=== PATIENT | female | born 1950 | race Caucasian/White ===

== ENCOUNTER 2019-08-11 17:48 | Emergency (ER) | payer OTHER ==
[~2019-08-11] VITALS: Ht 167.6 cm; Wt 64.4 kg
[~2019-08-11 17:48] MED LIST: EVISTA60 MG PO; IBUPROFEN 800800 M1 PO; UNICOMPLEX M TA1 TA1 PO
[2019-08-11] MEDS ORDERED: ASA81BEC PO (17:57)
[2019-08-11] MEDS ORDERED: TYLENOL WITH CO1 TA1 PO (18:42)
[2019-08-11] MEDS ORDERED: KEFLEX500 M1 PO (18:42)
[2019-08-11 19:24] VITALS: BP 148/84
== END 2019-08-11 19:24 | disposition home or self-care (01) ==
LOC: M.ERS 17:48
DX: S61.217A Laceration without foreign body of left little finger without damage to nail, initial encounter (principal); S61.211A Laceration without foreign body of left index finger without damage to nail, initial encounter; S61.215A Laceration without foreign body of left ring finger without damage to nail, initial encounter; W26.8XXA Contact with other sharp object(s), not elsewhere classified, initial encounter; Y93.89 Activity, other specified; Y92.89 Other specified places as the place of occurrence of the external cause; Y99.8 Other external cause status

== ENCOUNTER → 2019-12-22 | Outpatient (CLI) | payer OTHER ==
[~2019-12-22] MED LIST changes: +ASA81BEC PO; +KEFLEX500 M1 PO; +TYLENOL WITH CO1 TA1 PO
== END ==
LOC: M.RAD 11:12
PROVIDERS: ATTEND Internal Medicine
DX: S39.92XA Unspecified injury of lower back, initial encounter (principal); M47.816 Spondylosis without myelopathy or radiculopathy, lumbar region; X58.XXXA Exposure to other specified factors, initial encounter; Y93.89 Activity, other specified; Y92.89 Other specified places as the place of occurrence of the external cause; Y99.8 Other external cause status